=== PATIENT | female | born 1960 | race Caucasian/White ===

== ENCOUNTER 2018-07-20 06:03 | Day surgery (SDC) | payer OTHER ==
[~2018-07-20] VITALS: Ht 170.2 cm; Wt 55.8 kg
[~2018-07-20 06:03] MED LIST: PRED25TA PO; XELJ5TAB PO
[2018-07-20] MEDS ORDERED: XELJ5TAB (06:33)
[2018-07-20] MEDS ORDERED: PRED25TA (06:33)
[2018-07-20] MEDS ORDERED: LIDOCAINE W/EPINEPHRINE 1% 20ML VIAL As Ordered ONE (06:51)
[2018-07-20] MEDS ORDERED: METHYLENE BLUE 0.5% (5MG/ML) 10 ML AMP (PROVAYBLUE)(Q9968 PER 1MG) As Ordered ONE (06:51)
[2018-07-20] MEDS ORDERED: SODIUM CHLORIDE 0.9% NASAL GEL 15GM (AYR) As Ordered ONE (06:51)
[2018-07-20] MEDS ORDERED: EPINEPHrine 1MG/ML INJ 30ML MD-VIAL As Ordered ONE (06:51)
[2018-07-20] MEDS ORDERED: LR 1,000 ML IV SCH ×3 (07:00→09:30)
[2018-07-20] MEDS ORDERED: dexameTHASONE 4 MG/ML 1ML VIAL (J1100) IV ONE (07:00)
[2018-07-20] MEDS ORDERED: PROPOFOL 200 MG/20 ML VIAL As Ordered ONE ×3 (07:16→08:28)
[2018-07-20] MEDS ORDERED: MIDAZOLAM INJ 2 MG/2 ML VIAL (J2250) As Ordered ONE (07:16)
[2018-07-20] MEDS ORDERED: fentaNYL 100 MCG/2 ML INJECTION (J3010) As Ordered ONE ×3 (07:16→09:18)
[2018-07-20] MEDS ORDERED: LIDOCAINE 2% INJ 100 MG/5 ML SDV (FOR ANES.) As Ordered ONE (07:16)
[2018-07-20] MEDS ORDERED: REMIFENTANIL 1MG 3ML VIAL As Ordered ONE (07:17)
[2018-07-20] MEDS ORDERED: ROCURONIUM BROMIDE 50 MG/5 ML VIAL As Ordered ONE ×2 (07:33→08:31)
[2018-07-20] MEDS ORDERED: ONDANSETRON 4MG/2ML VIAL (J2405) As Ordered ONE (08:15)
[2018-07-20] MEDS ORDERED: SUGAMMADEX SODIUM 500 MG/5 ML VIAL (BRIDION) As Ordered ONE (08:22)
[2018-07-20] MEDS: fentaNYL 100 MCG/2 ML INJECTION (J3010) IV PRN ×2 (09:21→09:31)
[2018-07-20] MEDS ORDERED: ONDANSETRON 4MG/2ML VIAL (J2405) IV PRN (09:30)
[2018-07-20] MEDS ORDERED: PERCOCET 5MG/325MG TAB As Ordered ONE (09:41)
[2018-07-20] MEDS ORDERED: PERCOCET 5MG/325MG TAB PO PRN (10:00)
[2018-07-20 10:49] VITALS: BP 137/71
--- NOTE | 2018-07-20 20:13 | RO ---
DATE OF PROCEDURE: 07/20/2018 PREPROCEDURE DIAGNOSIS: Deviated nasal septum. POSTPROCEDURE DIAGNOSIS: Deviated nasal septum. OPERATIVE PROCEDURE: Septoplasty SURGEON: Mauro Coburn MD CHILD STUDY TEAM DIRECTOR: ANESTHESIA: General with malignant hyperthermia precaution protocol. CLINICAL PREAMBLE: This 58-year-old woman presented to the office complaining of chronic nasal congestion, worse on the right side. Physical examination revealed deviated nasal septum into the right nasal cavity. Management options including septoplasty have been discussed. The patient understood and consented to the procedure. DESCRIPTION OF PROCEDURE: The patient was identified in the preoperative holding and brought to the operating room in stable condition. In the supine position on the operating room table, the patient received general anesthesia followed by oral endotracheal intubation without incident. The malignant hyperthermia protocol was utilized throughout the entire perioperative period due to family history of malignant hyperthermia. At this time, both sides of the nasal cavity were packed using the pledgets soaked in 1:1000 epinephrine. After removal of the pledgets, both sides of the nasal septum were infiltrated with 1% lidocaine with 1:100,00 epinephrine. The left hemitransfixion incision was made. Mucoperichondrial and mucoperiosteal flap was developed on the left side to the nasal septum. The bony cartilaginous junction was identified and disarticulated. The deviated portion of the vomer bone and perpendicular plate were resected using the cutting Yahir-Alix forceps. The deviated portion anterior nasal septal cartilage was also noted to be ossified, was isolated and resected as well. Maxillary crest was isolated and resected as well. At this time the nasal septum returned to a midline position. The left hemitransfixion incision was closed using #3-0 chromic suture. The Pack splint was inserted into each side of the nasal cavity and then secured anteriorly using #0 nylon suture. At the end of the procedure, sponge and instrument counts were correct. No complications were encountered. Estimated blood loss was approximately 50 mL. General anesthesia was reversed and the patient was extubated and brought to the recovery room in stable condition.
== END 2018-07-20 11:12 | disposition home or self-care (01) ==
LOC: M SDC 06:03
PROVIDERS: ATTEND Otolaryngology
DX: J34.2 Deviated nasal septum (principal); Z88.0 Allergy status to penicillin; Z79.52 Long term (current) use of systemic steroids
CPT/HCPCS: 30520; 88300; J1100; J2250; J2405; J3010; Q9968

== ENCOUNTER → 2020-08-07 | Outpatient (REF) | payer OTHER, BC ==
[~2020-08-07] MED LIST changes: +PRED25TA; +XELJ5TAB
== END ==
LOC: M SFHCWAGY 17:17
PROVIDERS: ATTEND Nurse Practitioner Women's Health
DX: Z12.4 Encounter for screening for malignant neoplasm of cervix (principal)

== ENCOUNTER 2023-05-26 06:32 | Day surgery (SDC) | payer OTHER, SELFPAY ==
[~2023-05-26] VITALS: Ht 170.2 cm; Wt 57.8 kg
[~2023-05-26 06:32] MED LIST changes: +ETAN50PE SC; +MAGN400C PO; +OYST1TAB PO; +VITA400C53 PO; +ZINC30TA2 PO
[2023-05-26] MEDS: NS 1,000 ML IV ONE (07:05)
[2023-05-26] MEDS ORDERED: propofoL 200 MG/20 ML VIAL As Ordered ONE ×2 (07:34→07:39)
[2023-05-26 08:10] VITALS: BP 113/62; O2SAT 100
== END 2023-05-26 08:20 | disposition home or self-care (01) ==
LOC: M OPP 06:32
PROVIDERS: ATTEND Surgery
DX: D12.6 Benign neoplasm of colon, unspecified (principal); K57.30 Diverticulosis of large intestine without perforation or abscess without bleeding; M06.9 Rheumatoid arthritis, unspecified; Z87.891 Personal history of nicotine dependence; Z88.0 Allergy status to penicillin; Z79.899 Other long term (current) drug therapy

== ENCOUNTER → 2023-11-17 | Outpatient (REF) | payer OTHER | LOC: M SFHCRHEU 15:31 | PROVIDERS: ATTEND Internal Medicine Rheumatology | DX: M06.09 Rheumatoid arthritis without rheumatoid factor, multiple sites (principal); M81.0 Age-related osteoporosis without current pathological fracture; Z79.899 Other long term (current) drug therapy; H16.203 Unspecified keratoconjunctivitis, bilateral ==